=== PATIENT | female | born 1995 | race Caucasian/White ===

== ENCOUNTER → 2018-10-15 17:12 | Outpatient (CLI) | payer OTHER, SELFPAY | PROVIDERS: Referring Provider Obstetrics & Gynecology; Visit Provider Obstetrics & Gynecology | DX: N39.0 Urinary tract infection, site not specified (principal) | CPT/HCPCS: 87086; 87088; 87186 ==

== ENCOUNTER → 2019-01-26 13:10 | Outpatient (CLI) | payer OTHER, SELFPAY ==
--- NOTE | 2019-01-26 13:21 | CT_ITS ---
STUDY: CT FACIAL BONES WITHOUT CONTRAST REASON FOR EXAM: Female, 24 years old. Chronic sinus infections. RADIATION DOSAGE (If Supplied By Facility): CTDIvol = ( 33.06 ) mGy, DLP = ( 821.45 ) mGycm TECHNIQUE: The patient was scanned in a multi detector CT scanner. Sagittal and coronal images were reconstructed. Individualized dose optimization techniques were used for this CT. COMPARISON: CT head February 05, 2016. FINDINGS: Normal soft tissue structures. Normal orbital perdue and orbital contents. Nasal septum deviated to the right. Right-sided bone spur. Right vicki bullosa. Ostiomeatal complexes are patent. Normal facial bones. There is no demonstrated fracture. Normal visualized paranasal sinuses. Mucosal thickening or air-fluid levels. Visualized anterior aspect of the mastoid air cells are well aerated. CT/Sinus/Facial Bone IMPRESSION: Paranasal sinuses are well aerated. Nasal septal deviation with right-sided bone spur. Electronically Signed: Alex Sweeney MD at 7:35 EDT , Service support ,
== END ==
PROVIDERS: Referring Provider Otolaryngology; Visit Provider Otolaryngology
DX: J32.9 Chronic sinusitis, unspecified (principal)
CPT/HCPCS: 70486

== ENCOUNTER 2019-10-31 12:56 | Emergency (ER) | payer OTHER, SELFPAY ==
[2019-10-31 12:57] VITALS: BP 140/78; PULSE 97; RESP 16; TEMP 36.5; O2SAT 100; BMI 33.6
--- NOTE | 2019-10-31 13:17 | CT_ITS ---
STUDY: CT ORBITS WITHOUT CONTRAST REASON FOR EXAM: Female, 24 years old. Right orbital cellulitis, facial pain, sinus problems, detached retina. RADIATION DOSAGE (If Supplied By Facility): CTDIvol = ( 29.38 ) mGy, DLP = ( 371.15 ) mGycm TECHNIQUE: The patient was scanned in a multi detector CT scanner. Transaxial imaging was performed without the administration of intravenous contrast material. Sagittal and coronal images were reconstructed. Individualized dose optimization techniques were used for this CT. COMPARISON: CT sinuses January 26, 2019 FINDINGS: Normal globes. Normal intraconal spaces. Normal optic nerve sheath complex. Normal bilateral extraocular muscles. Normal lacrimal glands. Normal bilateral medial and inferior orbital perdue. Normal bilateral maxillary bones. Normal bilateral frontozygomatic arches. Normal bilateral zygomatic temporal arches. Normal frontal sinus. There is mild mucosal thickening of the ethmoidal sinuses. There is a right side middle turbinate vicki bullosa. There is mucosal thickening of the left maxillary sinus. There is fluid in the sphenoid sinuses. There is right side septal nasal spur and slight deviation. There is a suggestion of subtle calcification at the level of the right-sided cavernous carotid artery which is atypical for a patient this age. There is mild superficial soft tissue edema. CT/Orb Sella Post Fossa Ear w/o IMPRESSION: There is minimal jonathon Orbital superficial soft tissue edema. There is a subtle focus of calcification within the cavernous carotid space which is at the takeoff of the right ophthalmic artery. Calcification of the carotids is unusual for patient age 24. However potentially vascular lesions could have calcifications. Given patient''s history of right orbital complaints recommend consideration for follow-up CT angiogram and/or MRI/MRA to evaluate cavernous carotid arteries and the ophthalmic arteries. Left maxillary sphenoid and ethmoid sinusitis. Electronically Signed: Jazmine Leija MD at 14:34 EST Tel , Service support ,
--- NOTE | 2019-10-31 13:41 | ED.VIS.EYE ---
History of Present Illness Informant: Patient, Family Location: Right Eye Onset: Yesterday Context: Gradual Onset Timing: Continuous Current Severity: Severe Maximum Severity: Severe Worsened by: Nothing Relieved by: Nothing Associated Symptoms - Eyes: Pain Visual Changes: right: Blurred vision History of injury: No Visual correction: None Narrative: 4-year-old female presents emergency department directly from her retinal specialist. Right eye pain and loss of vision. At rest last evening the patient had a sudden onset of right eye pain then developed loss of vision central right eye visual field, her peripheral vision is normal otherwise and she has normal vision in her left eye. Saw her senior integration architect who referred her to see a retinal specialist today. The retinal specialist thinks the patient may have a serious retinal detachment. Patient does have a history of significant sinusitis and had a sinus plasty less than a year ago. Her retinal specialist was concerned with possibility of a sinus infection or orbital cellulitis and recommended that the patient come to the emergency department for a CT scan of the orbit. Patient does have symptoms consistent with her previous sinus infections. She currently does not have a headache she does have right-sided eye pain and right-sided facial pain. She has not had any trauma to the eye. She has no drainage. No facial swelling or rash. No ear pain. She denies any difficulty with speech or ambulation or weakness or paresthesias. No neck pain. She is not lightheaded or dizzy. No vomiting. Prior similar symptoms: No Recent Illness/Hospitalization: No <Babak Bedoya - Last Filed: 10/31/19 17:24> <Pete Christine - Last Filed: 10/31/19 23:24> Chief Complaint: Eye Problem Past Medical History Prior records reviewed: Yes Past Medical History: None Surgical History: - - sinus surgery Lives: With Family Smoking Status: Never smoker <Babak Bedoya - Last Filed: 10/31/19 17:24> <Pete Christine - Last Filed: 10/31/19 23:24> - Allergies and Home Meds Allergies/Adverse Reactions: Allergies No Known Allergies Allergy (Verified 10/31/19 13:00) Primary Care Physician: Nayely Leigh MD [Primary Care Provider] - Review of Systems All systems negative except as indicated General: Denies: Chills, Fever Eyes: Reports: Visual changes - right. Denies: Visual changes - left, Blurred vision - left, Diplopia ENT: Reports: Rhinorrhea. Denies: Bilateral ear pain, Sore throat Cardiovascular: Denies: Chest pain, Palpitations Respiratory: Denies: Dyspnea, Cough Gastrointestinal: Denies: Abdominal pain, Nausea, Vomiting, Diarrhea Genitourinary: Denies: Dysuria, Hematuria, Frequency Musculoskeletal: Denies: Myalgias, Arthralgias, Neck pain, Back pain Skin: Denies: Rash, Abscess, Abrasions, Wounds Neurological: Denies: Headache, Weakness, Parasthesia, Numbness Hematologic: Denies: Easy bruising, Easy bleeding <Babak Bedoya - Last Filed: 10/31/19 17:24> Physical Exam Visual Acuity: right: 20/200, left: 20/20, bilateral: 20/30 Visual Acuity: Uncorrected Eyelid: Normal inspection Right Conjunctiva/Sclera: Diffuse focal injection Left Conjunctiva/Sclera: Normal inspection Right Cornea: Normal inspection Left Cornea: Normal inspection Extraocular Motion: Normal exam, No pain, No palsy, No nystagmus Pupils: Normal accomodation, PERRL Anterior chamber: Normal exam Posterior Segment: Normal fundoscopic exam, Exam limited by miosis Vital Signs/Narrative: Vital Signs Temp Pulse Resp BP Pulse Ox 10/31/19 12:57 97.7 F L 97 16 140/78 H 100 Inital Vital Signs reviewed: Yes General: Well nourished, Well developed Head: Normocephalic, Atraumatic ENT: Moist mucous membranes, Nasal congestion, Sinus tenderness. Negative for: Dry mucous membranes Neck: Supple, Nontender, No lymphadenopathy Cardiovascular: Regular rate, Regular rhythm, No murmurs Respiratory: No distress, CTA bilaterally, Chest nontender Back: Normal Inspection Extremities: No edema Skin: Normal color, No rash, No Trauma Neurological: Alert, Oriented x3, Cranial nerves II-XII grossly intact, Normal Strength, Normal Sensation, Normal Gait, - - Normal [id number] Psychological: Normal affect, Normal Mood <Babak Bedoya Last Filed: 10/31/19 17:24> Diagnostic/Tx/Re-eval Laboratory Tests 10/31/19 10/31/19 Range/Units 15:10 15:10 WBC 9.4 (4.4-11.0) K/mm3 RBC 4.54 (4.2-5.4) M/mm3 Hgb 12.7 (12.0-15.0) g/dL Hct 39.6 (37-47) % MCV 87.2 (81-99) fL MCH 28.0 (27.0-32.0) pg MCHC 32.1 (32-36) g/dL RDW Std Deviation 42.8 (35.1-43.9) fl RDW Coeff of Rosita 13.4 (11.6-14.6) % Plt Count 305 (150-450) K/mm3 MPV 9.9 (6.2-12.0) fl Immature Gran % (Auto) 0.400 (0.0-0.9) % Neut % (Auto) 74.7 H (47-70) % Lymph % (Auto) 17.0 L (19-41) % [place] % (Auto) 5.3 (0-10) % Eos % (Auto) 2.2 (0-5) % Baso % (Auto) 0.4 (0-1) % Absolute Neuts (auto) 7.0 (2.0-7.7) X10^3/uL Absolute Lymphs (auto) 1.60 (0.83-4.51) X10^3/uL Nucleated RBC % 0 (0-5) % Differential Comment SCANNED ESR 14 (0-20) mm/hr Sodium 145 (136-145) mmol/L Potassium 3.8 (3.5-5.1) mmol/L Chloride 111 H (98-107) mmol/L Carbon Dioxide 26.0 (21.0-32.0) mmol/L Anion Gap 8 (5-15) BUN 7 (7-18) mg/dL Creatinine 0.72 (0.55-1.02) mg/dL Estim Creat Clear Calc 119.18 ml/min Est GFR (MDRD) Af Amer 129 (>60) mL/min Est GFR (MDRD) Non-Af 106 (>60) mL/min BUN/Creatinine Ratio 9.7 L (10-20) RATIO Glucose 98 (74-106) mg/dL Calcium 9.0 (8.5-10.1) mg/dL Impressions CT Orbit Sella Inner 10/31/19 13:17 IMPRESSION: There is minimal jonathon Orbital superficial soft tissue edema. There is a subtle focus of calcification within the cavernous carotid space which is at the takeoff of the right ophthalmic artery. Calcification of the carotids is unusual for patient age 24. However potentially vascular lesions could have calcifications. Given patient''s history of right orbital complaints recommend consideration for follow-up CT angiogram and/or MRI/MRA to evaluate cavernous carotid arteries and the ophthalmic arteries. Left maxillary sphenoid and ethmoid sinusitis. Electronically Signed: Jazmine Leija MD at 14:34 EST Tel , Service support , Head/Neck CTA 10/31/19 14:59 IMPRESSION: Early punctate calcification of the right cavernous carotid artery. Normal unenhanced CT scan of the brain. Electronically Signed: Jazmine Leija MD at 16:59 EST Tel , Service support , 10/31/19 13:17 Orb Sella Post Fossa Ear w/o [CT] Stat 10/31/19 14:59 CTA Head AND Neck W/ Contrast [CT] Stat Laboratory Results 10/31/19 10/31/19 15:10 15:10 WBC 9.4 RBC 4.54 Hgb 12.7 Hct 39.6 MCV 87.2 MCH 28.0 MCHC 32.1 RDW Std Deviation 42.8 RDW Coeff of Rosita 13.4 Plt Count 305 MPV 9.9 Immature Gran % (Auto) 0.400 Neut % (Auto) 74.7 H Lymph % (Auto) 17.0 L [place] % (Auto) 5.3 Eos % (Auto) 2.2 Baso % (Auto) 0.4 Absolute Neuts (auto) 7.0 Absolute Lymphs (auto) 1.60 Nucleated RBC % 0 Differential Comment SCANNED ESR 14 Sodium 145 Potassium 3.8 Chloride 111 H Carbon Dioxide 26.0 Anion Gap 8 BUN 7 Creatinine 0.72 Estim Creat Clear Calc 119.18 Est GFR (MDRD) Af Amer 129 Est GFR (MDRD) Non-Af 106 BUN/Creatinine Ratio 9.7 L Glucose 98 Calcium 9.0 - Medical Decision Making Patient arrives from retinal specialist office. Concern for orbital cellulitis. Requested a CT scan of the orbits. This was performed. No obvious evidence of orbital cellulitis or sinusitis however there was concern for an abnormality of the right ophthalmic artery and the radiologist recommended a CTA head and neck. This was performed. It was unremarkable. No abnormalities of the ophthalmic artery bilaterally. Patient has not had worsening of her symptoms. Clinically she is well-appearing. Her neurological exam was nonfocal. She does not have any clinical evidence on exam of sinusitis or orbital cellulitis. Spoke with her retinal specialist will start in a high-dose prednisone taper and he will see her in the office on Saturday. Patient was advised to return for worsening symptoms otherwise follow-up as directed and was agreeable with plan <Babak Bedoya - Last Filed: 10/31/19 17:24> - Medical Decision Making Patient was seen with me. I did a [id number] examination with the patient. Patient presents with visual changes in her right eye. Patient saw a retinal specialist today who referred her to the emergency department for emergent CT scan to rule out orbital cellulitis. The patient was diagnosed with a retinal detachment however the senior integration architect was concerned over possible orbital cellulitis. Patient denies any pain with eye movement. Patient denies any swelling. Vital signs are stable. Patient is afebrile. Patient is in no acute distress. Pupils are equal, round, and reactive to light bilaterally. Extraocular muscles are intact. There is no pain with extraocular movements. There is no periorbital tenderness or edema. Cranial nerves II through XII are intact. There are no focal motor or sensory deficits noted. Heart was regular rate and rhythm. Lungs are clear and equal bilateral. CT scan of the orbits was obtained. There is a concern for an abnormality of the right ophthalmic artery and a CTA of the head neck was recommended. This was performed. There is no evidence of orbital cellulitis. There are no abnormalities of the ophthalmic artery. Patient was started on prednisone as recommended by the retinal specialist that she saw today. I do not feel antibiotics are necessary at this time. Patient was instructed to follow-up with her retinal specialist and primary care physician in 5 to 7 days. Patient understood and was agreeable with the plan. All questions were answered. <Pete Christine - Last Filed: 10/31/19 23:24> ED Disposition <Babak Bedoya - Last Filed: 10/31/19 17:24> <Pete Christine - Last Filed: 10/31/19 23:24> - Plan for ED Patient: Disposition: Home or Assisted Living Diagnosis: Retinal detachment Prescriptions: Prednisone 10 mg PO DAILY #28 tab Prescription Printed Referrals: Nayely Leigh MD [Primary Care Provider] -
--- NOTE | 2019-10-31 14:59 | CT_ITS ---
STUDY: CTA HEAD AND NECK WITH CONTRAST REASON FOR EXAM: Female, 24 years old. Right sided vision loss, right eye and facial pain, abnormal orbit CT. RADIATION DOSAGE (If Supplied By Facility): CTDIvol = ( 22.07 ) mGy, DLP = ( 759.86 ) mGycm TECHNIQUE: CT angiography was performed with a multi-detector CT scanner. Data acquisition was obtained from the skull base through the vertex following intravenous administration of 100mL Isovue 300. MIP images were reconstructed from the axial data set. Post-processing of the angiographic images was performed, with multiplanar reformation and 3D reconstruction. At the time of this study the images are somewhat delayed and there is visualization of venous structures as well as arterial structures. This can cause some limitation to the study due the due to the overlap of structures. Individualized dose optimization techniques were used for this CT. COMPARISON: No relevant priors. FINDINGS: Normal bilateral petrous carotid arteries. There is a minimal focus of punctate calcification within the right-sided cavernous carotid artery. This does not appear to be associated with a vascular malformation. There is visualized and symmetric contrast within the right ophthalmic artery and the visualized right-sided ethmoid. There is fairly symmetric appearing bilateral globes. There is no significant enhancement of the right optic structures rather than the left. This is allowing for the timing of the study. Normal left cavernous carotid artery with a normal supraclinoid bifurcation. Normal right A1 segments of the anterior cerebral artery. Normal left A1 segments of the anterior cerebral artery. Normal intact anterior communicating artery (ACOM). Normal bilateral A2 segments of the anterior cerebral arteries. Normal right M1 and M2 segments of the middle cerebral arteries, with a normal M1 bifurcation. Normal left M1 and M2 segments of the middle cerebral arteries, with a normal M1 bifurcation. Normal right posterior communicating artery (PCOM). Normal left posterior communicating artery (PCOM). Normal bilateral vertebral arteries. Normal basilar artery with a normal basilar bifurcation. The visualized bilateral superior cerebellar (SCA) arteries are normal. Normal bilateral P1, P2 and visualized P3 segments of the posterior cerebral arteries. There is no demonstrated aneurysm of the [place]. There is no demonstrated abnormality of the visualized brain. There is fluid in the sphenoid sinuses. There is mild ethmoid sinus mucosal thickening. AORTIC ARCH: Normal visualized aortic arch. Normal origins of the brachiocephalic, left common carotid, and left subclavian arteries. RIGHT CAROTID ARTERIES: Normal right common carotid artery (CCA). Normal right common carotid bulb. Normal origin of the right internal carotid (ICA) artery without a hemodynamically significant stenosis. Normal visualized cervical portion of the right internal carotid artery. Normal origin of the right external carotid artery (ECA). LEFT CAROTID ARTERIES: Normal left common carotid artery (CCA). Normal left common carotid bulb. Normal origin of the left internal carotid (ICA) artery without a hemodynamically significant stenosis. There is atherosclerotic tortuous elongation of the cervical portion of the left internal carotid artery. Normal origin of the left external carotid artery (ECA). VERTEBRAL ARTERIES: Normal bilateral vertebral arteries. IMPRESSION: Punctate peripheral calcification of a otherwise normal appearing right sided cavernous carotid artery without a visualized vascular malformation. Good contrast enhancement seen in the typically small ophthalmic arteries. Given clinical history recommend consideration for follow-up study such as MRI/MRA. Otherwise, Normal CTA Head and neck with contrast. Electronically Signed: Jazmine Leija MD at 16:56 EST Tel , Service support , STUDY: CT BRAIN WITHOUT CONTRAST REASON FOR EXAM: Female, 24 years old. Right sided vision loss, right eye and facial pain, abnormal orbit CT. RADIATION DOSAGE (If Supplied By Facility): CTDIvol = ( 44.99 ) mGy, DLP = ( 796.11 ) mGycm TECHNIQUE: Transaxial CT imaging of the brain was performed without administration of intravenous contrast material. Individualized dose optimization techniques were used for this CT. COMPARISON: No relevant priors. FINDINGS: Normal soft tissue structures. Normal calvarium. There is a trace focus of calcification at the level of the right cavernous carotid. Normal size ventricles and extra-axial spaces for the patient''s age. Normal white matter tracts of the cerebral hemispheres. Normal basal ganglia and thalami. Normal brainstem. Normal cerebellum. There is no intracranial hemorrhage. There are no findings of an acute ischemic infarction. There is sphenoid ethmoid maxillary mucoperiosteal inflammatory disease of the paranasal sinuses consistent with moderate chronic sinusitis. CT/CTA Head AND Neck W/ Contrast IMPRESSION: Early punctate calcification of the right cavernous carotid artery. Normal unenhanced CT scan of the brain. Electronically Signed: Jazmine Leija MD at 16:59 EST Tel , Service support ,
[2019-10-31] MEDS: 0.9% Normal Saline 1,000 ML 1000 ML IV (15:21)
[2019-10-31 15:31] LABS: Basophil# 0.04 X10^3/uL; Basophil% 0.4 % (0-1); Eosinophil# 0.21 X10^3/uL; Eosinophils% 2.2 % (0-5); Hematocrit 39.6 % (37-47); Hemoglobin 12.7 g/dL (12.0-15.0); Mean Corp Hgb Conc 32.1 g/dL (32-36); Mean Corpuscular Volume 87.2 fL (81-99); Mean Platelet Vol. 9.9 fl (6.2-12.0); Monocyte% 5.3 % (0-10); NRBC Flagged by Analyzer 0 % (0-5); Neutrophil # 7.04 X10^3/uL (2.7-7.7); Neutrophil % 74.7 % (47-70); POSITIVE MORPHOLOGY YES; Platelet Count 305 K/mm3 (150-450); RBC Distribution Width CV 13.4 % (11.6-14.6); RBC Distribution Width SD 42.8 fl (35.1-43.9); Red Blood Count 4.54 M/mm3 (4.2-5.4); White Blood Count 9.4 K/mm3 (4.4-11.0)
[2019-10-31 15:32] LABS: Differential Indicated SCAN CRITERIA MET
[2019-10-31 15:42] LABS: Anion Gap 8 (5-15); BUN 7 mg/dL (7-18); BUN/Creat Ratio 9.7 RATIO (10-20); Chloride 111 mmol/L (98-107); Creatinine, Serum 0.72 mg/dL (0.55-1.02); EST Glomerular Filtration Rate 106 mL/min (>60); Est Glom Filt Rate - Afr Amer 129 mL/min (>60); Estimated Creatinine Clearance 119.18 ml/min; Glucose 98 mg/dL (74-106); Potassium 3.8 mmol/L (3.5-5.1); Sodium Level 145 mmol/L (136-145)
[2019-10-31 15:44] LABS: Erythrocyte Sedimentation Rate 14 mm/hr (0-20)
[2019-10-31 16:13] LABS: Differential Comment SCANNED
[2019-10-31] MEDS: predniSONE 20 MG Tablet 80 MG PO (17:25)
[2019-10-31 17:26] VITALS: BP 132/89; PULSE 88; RESP 15
== END 2019-10-31 17:35 | disposition home or self-care (01) ==
PROVIDERS: Emergency Provider Physician Assistant Medical; PCP Internal Medicine; Referring Provider Internal Medicine
DX: H33.21 Serous retinal detachment, right eye (principal)
CPT/HCPCS: 70480; 70496; 70498; 80048; 85025; 85652; 96360; 96361; 99284; J7030; Q9967

== ENCOUNTER → 2020-04-22 17:31 | Outpatient (CLI) | payer OTHER, SELFPAY | PROVIDERS: PCP Internal Medicine; Referring Provider Nurse Practitioner; Visit Provider Nurse Practitioner | DX: Z20.828 Contact with and (suspected) exposure to other viral communicable diseases (principal) | CPT/HCPCS: 87635; U0003 ==

== ENCOUNTER 2024-12-30 04:56 | Emergency (ER) | payer OTHER, SELFPAY ==
[2024-12-30 04:57] VITALS: BP 137/84; PULSE 78; RESP 18; TEMP 36.4; O2SAT 100; BMI 37.8
--- NOTE | 2024-12-30 05:06 | RAD_ITS ---
PROCEDURE: Acute abdominal series including PA chest, four views 12/30/2024 REASON FOR EXAM: PAIN TECHNIQUE: A single PA view of the chest and three views of the abdomen were obtained. Of the COMPARISON: None available FINDINGS: The cardiomediastinal silhouette is within normal limits. There is slight nodular fullness left hilum, which could be due to tortuous vascular structures. No focal airspace consolidation, pneumothorax, or pleural effusion. No abnormally dilated bowel segments. [id number] stool in the right colon. No free air or pathologic air-fluid levels on the upright view. Osseous structures are grossly unremarkable. RAD/Acute Abdomen Inc Chest IMPRESSION: No acute findings in the chest or abdomen on the provided radiographs. If ther e is persistent pain, CT evaluation may be considered. Slightly nodular fullness of the left hilum, favored to be due to vascular tort uosity/superimposed structures. Suggest a follow-up PA and lateral chest radiograph in 1 week to re-evaluate. Reading Location: [facility]
--- NOTE | 2024-12-30 05:06 | ED.VIS.GI ---
HPI HPI - GI History of Present Illness Chief Complaint: Abd Pain Narrative Narrative: 29-year-old female presents with abdominal pain and bloating that she has had since 2:00 this morning, approximately 3 hours ago. Of note, she states that she takes Mounjaro for weight loss as she states that previously she was class V obesity. She also has family history of diabetes. She has taken Mounjaro for the last 7 to 9 months of 7.5 mg weekly. She has felt like this previously and usually takes the Gas-X which resolves her symptoms. However, she took 1 and it did not resolve. She is nauseated but denies any vomiting. No problems with bowel movements. She presents because of the abdominal pain and nausea. PFSH PFSH Medical History no medical history Home Medications ?Medication ?Instructions ?Recorded ?Last Taken ?Type etonogestrel 68 mg subdermal 68 mg SQ X1 10/31/19 Unknown History implant prednisone 10 mg tablet 10 mg PO DAILY PRN autoimmune 12/30/24 Unknown History disease flare ups tirzepatide 7.5 mg/0.5 mL 7.5 mg subcut .weekly 12/30/24 Unknown History subcutaneous pen injector (Mounjaro) Allergy/AdvReac Type Severity Reaction Status Date / Time No Known Allergies Allergy Verified 12/30/24 05:12 Social History Smoking Status: Never smoker ROS ROS ED ROS Narrative Review of systems positive for abdominal pain, nausea but no vomiting. No fevers or chills. No diarrhea or problems with bowel movements. No previous surgeries to the abdomen. EXAM Physical Exam Narrative Exam Narrative: Afebrile. Vital signs noted. Nontoxic-appearing. Cardiovascular examination reveals a regular rate and rhythm. Lungs are clear to auscultation bilaterally. The abdomen is soft with minimal diffuse tenderness to palpation, possibly hypoactive bowel sounds. No guarding or rebound. Neurological examination is nonfocal and nonlateralizing. She is able to stand and transfer to and from the cot without difficulty. Const Vital Signs: 12/30/24 04:57 Temperature 97.5 F L Temperature Source Oral Pulse Rate 78 Respiratory Rate 18 Blood Pressure 137/84 H Blood Pressure Mean 101 Pulse Ox 100 Oxygen Delivery Method Room Air MDM MDM MDM Narrative Medical decision making narrative: Differential diagnosis includes but not limited to medication side effect causing gastroparesis versus partial small bowel obstruction versus gastroenteritis versus pancreatitis. I have low suspicion for pancreatitis or bowel obstruction as she has not had any previous abdominal surgeries. She will be bolused IV fluids, and given Reglan. This should help with her nausea as well. I will check basic laboratory work including CBC, CMP, and lipase, and obtain x-rays of the abdomen and acute series to look for any evidence of obstruction. I reviewed her laboratory work and she has normal white count of 7.5 with hemoglobin normal at 12.9, hematocrit 38.8, platelet count normal at 281. CMP is grossly unremarkable with sodium 138 potassium 3.3, chloride 104. BUN of 9 and creatinine 0.74, no evidence of dehydration. Glucose appropriately elevated at 114 with normal anion gap of 11. Lipase normal at 27 so I doubt pancreatitis. On my independent interpretation of her x-rays, and of the x-ray of the chest, I see no acute process, no pneumonia no pneumothorax. There is a nonspecific, nonobstructive bowel gas pattern. She does have moderate stool on the right side of the colon. I discussed the patient with the radiologist regarding his read of it as well which confirms my independent interpretation. Upon repeat examination at approximately 6:05 AM, she feels improved. I feel she can be discharged home with follow-up. Return instructions to the emergency department were reviewed. Disposition is discharged home in stable condition. History & Record Review Discussion w/independent historian: Patient Lab Data Attestation: I reviewed the patient's lab results. Labs: Laboratory Results - last 24 hr 12/30/24 05:16 WBC 7.5 RBC 4.51 Hgb 12.9 Hct 38.8 MCV 86.0 MCH 28.6 MCHC 33.2 RDW Std Deviation 40.2 RDW Coeff of Rosita 12.8 Plt Count 281 MPV 10.3 Immature Gran % (Auto) 0.300 Neut % (Auto) 65.2 Lymph % (Auto) 25.5 Dickey % (Auto) 6.5 Eos % (Auto) 2.0 Baso % (Auto) 0.5 Absolute Neuts (auto) 4.9 Absolute Lymphs (auto) 1.92 Nucleated RBC % 0 Sodium 138 Potassium 3.3 Chloride 104 Carbon Dioxide 23.1 Anion Gap 11 BUN 9 Creatinine 0.74 Estim Creat Clear Calc 140.72 Est GFR (MDRD) Non-Af 115 BUN/Creatinine Ratio 11.9 Glucose 114 H Calcium 9.4 Total Bilirubin 0.27 AST 22 ALT 21 Alkaline Phosphatase 65 Total Protein 7.4 Albumin 4.1 Globulin 3.4 Albumin/Globulin Ratio 1.2 Lipase 27 Management Discussion w/another healthcare provider: Radiologist Discharge Plan Triage Chief Complaint: Abd Pain ED Provider: Dipak Maki Dx/Rx/DC Orders Clinical Impression: Abdominal pain, Nausea Instructions: ED Abdominal Pain Unkn Cause Fem Prescriptions: No Action etonogestrel 68 MG implant 68 mg SQ X1 Mounjaro 7.5 mg/0.5 mL pen injector 7.5 mg SUBCUT .weekly Patient Comments: [NO ORIGINAL SIG] prednisone 10 MG tablet 10 mg PO DAILY PRN (Reason: autoimmune disease flare ups) Rx Instructions: 70 mg day one, 60 mg day two, 50 mg day three, 40 mg day 4, 30 mg day 5, 20 mg day 6, 10 mg day 7 Primary Care Provider: Claudine Simons NP Referrals: Nayely Leigh MD [[facility]] - 1-2 Days if not improving Activity Restrictions/Additional Instructions: Return to the emergency department with increased pain, fever, vomiting, new or worsening symptoms. Print Language: Samoan Disposition Disposition: Home, Self Care
[2024-12-30] MEDS: 0.9% Normal Saline (1000mL) 1,000 ML 999 ML IV (05:16)
[2024-12-30] MEDS: Metoclopramide 10 MG/2 ML Vial IV (05:16)
[2024-12-30 05:24] LABS: Absolute Lymphocyte Count 1.92 X10^3/uL (0.83-4.51); Absolute Neutrophil Count 4.9 X10^3/uL (2.0-7.7); Basophil# 0.04 X10^3/uL; Basophil% 0.5 % (0-1); Eosinophil# 0.15 X10^3/uL; Hematocrit 38.8 % (37-47); Hemoglobin 12.9 g/dL (12.0-15.0); Lymphocyte # 1.92 X10^3/ul (0.83-4.51); Lymphocyte % 25.5 % (19-41); Mean Corp Hgb Conc 33.2 g/dL (32-36); Mean Corpuscular Hgb 28.6 pg (27.0-32.0); Mean Platelet Vol. 10.3 fl (6.2-12.0); Monocyte# 0.49 X10^3/uL; Monocyte% 6.5 % (0-10); NRBC Flagged by Analyzer 0 % (0-5); Neutrophil # 4.91 X10^3/uL (2.7-7.7); Neutrophil % 65.2 % (47-70); Platelet Count 281 K/mm3 (150-450); RBC Distribution Width CV 12.8 % (11.6-14.6); RBC Distribution Width SD 40.2 fl (35.1-43.9); Red Blood Count 4.51 M/mm3 (4.2-5.4); White Blood Count 7.5 K/mm3 (4.4-11.0)
[2024-12-30 05:43] LABS: ALB/GLOB Ratio 1.2 RATIO (0.9-2.4); AST(SGOT) 22 U/L (<=31); Alanine Aminotransfer ALT/SGPT 21 U/L (<=34); Albumin, Serum 4.1 g/dL (3.5-5.0); Alkaline Phosphatase 65 U/L (35-104); Anion Gap 11 (5-15); BUN 9 mg/dL (4-19); BUN/Creat Ratio 11.9 RATIO (10-20); Calcium,Total 9.4 mg/dL (7.6-11.0); Carbon Dioxide 23.1 mmol/L (21.0-32.0); Chloride 104 mmol/L (98-108); Creatinine, Serum 0.74 mg/dL (0.70-1.20); EST Glomerular Filtration Rate 115 (>60); Estimated Creatinine Clearance 140.72 ml/min (50-250); Globulin 3.4 g/dL (2.2-4.2); Glucose 114 mg/dL (70-99); Lipase 27 U/L (13-75); Potassium 3.3 mmol/L (3.3-5.1); Protein, Total 7.4 g/dL (5.9-8.4); Sodium Level 138 mmol/L (133-145); Total Bilirubin 0.27 mg/dL (0.00-1.30)
[2024-12-30 06:36] VITALS: BP 128/69; PULSE 76; RESP 16; TEMP 36.4; O2SAT 99
[2024-12-30 06:42] LABS: Internal QC Validated? YES +Cl - CLEAR BKGD; Pregnancy, Serum, hCG Quali. NEGATIVE Negative
== END 2024-12-30 06:38 | disposition home or self-care (01) ==
PROVIDERS: Emergency Provider Emergency Medicine; PCP Nurse Practitioner Family; Visit Provider Emergency Medicine
DX: R10.9 Unspecified abdominal pain (principal); R11.0 Nausea
CPT/HCPCS: 74022; 80053; 83690; 84703; 85025; 96361; 96374; 99283; A4216